=== PATIENT | male | born 1965 | race Caucasian/White ===

== ENCOUNTER 2019-08-02 16:28 | Inpatient (IN) ==
--- NOTE | 2019-08-02 16:56 | Diag Imaging Result Doc PS360 ---
EXAM: CHEST-2 VIEWS INDICATION: SOB TECHNIQUE: 2 views COMPARISON: 09/21/2017 FINDINGS: There is minimal subsegmental atelectasis at the right lung base. The lungs are grossly clear. There is no discrete pleural fluid collection or pneumothorax. The cardiomediastinal silhouette and central vasculature are grossly unremarkable. IMPRESSION: Minimal right basilar atelectasis. No definite acute chest pathology by plain radiograph, otherwise. Electronically signed by Meek Marx 08/02/2019 4:53 PM
--- NOTE | 2019-08-02 17:10 | PROVIDER DOCUMENTATION ---
HPI-Respiratory General - General Chief Complaint: Shortness of Breath Stated Complaint: Mata QUACH REFERRED Time Seen by Provider: 08/02/19 16:58 Source: patient Allergies/Adverse Reactions: Patient Allergies Allergy/AdvReac Type Severity Reaction Status Date / Time tramadol HCl * [From Ultram] AdvReac ITCHING Verified 08/02/19 19:05 Home Medications: Home Medication List Medication Instructions Recorded Confirmed Last Taken Type Aspirin [Ecotrin] 81 mg PO DAILY 08/28/14 08/02/19 09/10/15 History Amlodipine Besylate [Norvasc] 10 mg PO DAILY 09/11/15 08/02/19 09/10/15 History Citalopram Hydrobromide [Celexa] 40 mg PO DAILY 09/11/15 08/02/19 09/10/15 History Furosemide [Lasix] 40 mg PO DAILY PRN 09/11/15 08/02/19 09/10/15 History Metoprolol [Lopressor] 25 mg PO DAILY 09/11/15 08/02/19 09/10/15 History Potassium Chloride 20 meq PO BID 09/11/15 08/02/19 09/11/15 History Ibuprofen 800 mg PO TID 09/21/17 08/02/19 Unknown History Clopidogrel Bisulfate [Clopidogrel] 1 tab PO DAILY 03/14/19 08/02/19 Unknown History Gabapentin 1 tab PO TID 03/14/19 08/02/19 Unknown History Insulin Glargine [Lantus Insulin] 20 units SQ QHS 03/14/19 08/02/19 Unknown History Lovastatin 1 tab PO DAILY 03/14/19 08/02/19 Unknown History Metformin HCl [Glucophage] 1,000 mg PO BID 03/14/19 03/14/19 Unknown History Omeprazole 1 cap PO DAILY 03/14/19 08/02/19 Unknown History Sitagliptin Phos/Metformin HCl 1 tab PO BID 03/14/19 03/14/19 Unknown History [Janumet 50-1,000 mg Tablet] Tamsulosin HCl [Flomax] 0.4 mg PO DAILY #7 cap 03/14/19 Unknown Rx Zinc 50 mg PO DAILY 03/14/19 03/14/19 Unknown History Amoxicillin/Pot Clavulanate 875 mg PO BID 08/02/19 08/02/19 Unknown History [Augmentin] Bupropion HCl [Bupropion Xl] 150 mg PO DAILY 08/02/19 08/02/19 Unknown History Losartan Potassium 25 mg PO DAILY 08/02/19 08/02/19 Unknown History Meclizine HCl 25 mg PO DAILY 08/02/19 08/02/19 Unknown History Oxycodone/APAP 10 mg/325 mg 5 - 325 mg PO TID 08/02/19 08/02/19 Unknown History [Percocet-10] Sitagliptin Phos/Metformin HCl 50 - 1,000 mg PO BID 08/02/19 08/02/19 Unknown History [Janumet 50-1,000 mg Tablet] Trazodone HCl 100 mg PO HS 08/02/19 08/02/19 Unknown History - History of Present Illness-Resp Nature of Presenting Problem: 54 year old male pmh DMII, COPD, and nicotine dependence presenting to the emergency department c/o 1.5 week h/o increasing SOB, FIGUEROA, PND, and orthopnea. He is also endorsing increasing lower extremity edema in both legs bilaterally. Denies having ever been diagnosed with CHF. Symptoms are exacerbated with exertion and alleviated with rest. Ther patient states he cannot lay flat on his back or he starts coughing. All other ROS questioning is negative. Review of Systems - Adult - REVIEW OF SYSTEMS - ADULT Constitutional: reports: fatique, night sweats. denies: chills, fever Eyes: reports: no symptoms reported Ears, Nose, Mouth & Throat: reports: no symptoms reported Cardiovascular: reports: chest pain, edema (bilateral lower extremities), orthopnea, poor circulation, PND Respiratory: reports: cough, dyspnea on exertion, shortness of breath, wheezing Gastrointestinal: denies: abdominal pain, constipation, diarrhea, nausea, vomiting Genitourinary: denies: dysuria, frequency, flank pain, frequent UTI's, hematuria Musculoskeletal: denies: back pain, joint pain, joint swelling, muscle aches, muscle weakness Integumentary: reports: no symptoms reported Neurological: denies: dizziness/vertigo, headache/migraines, loss of balance, numbness, paresthesia, slurred speech, syncope Psychiatric: reports: no symptoms reported Endocrine: denies: change in skin pigment, excessive sweating, cold intolerance, heat intolerance, increased thirst, polyuria Hematologic/Lymphatic: reports: no symptoms reported Allergic/Immunologic: reports: no symptoms reported All Other Systems: Reviewed and Negative Past History - Adult - PAST MEDICAL HISTORY-ADULT Review of Records: reports: Old Records Reviewed, Nursing Assessment Review, Medications Reviewed, Social history reviewed & non-contributory. Major Childhood Illnesses: reports: denies history Cardiovascular: reports: HTN, hyperlipidemia Respiratory: reports: denies history Gastrointestinal: reports: denies history Obstetrical/Gynecological: reports: denies history Genitourinary: reports: denies history Musculoskeletal: reports: denies history Neurological: reports: CVA Endocrine/Immune: reports: Diabetes Other Conditions: reports: denies history - PRIOR SURGERIES/PROCEDURES Surgical/Procedure History: reports: orthopedic (extremity) - IMMUNIZATION STATUS Childhood Immunizations: See Nurse Assessment Flu Vaccine: See Nurse Assessment - FAMILY HISTORY Family History: reviewed, not pertinent - SOCIAL HISTORY Smoking: greater than 1 pack/day Substance Use: none/never Alcohol Use Frequency: occasionally Physical Exam-General - PHYSICAL EXAM-ADULT Initial Vital Signs Reviewed: Yes (low oxygen saturation) - CONSTITUTIONAL General Appearance: alert, no apparent distress, obese (morbid) - EYES Eyes: PERRL/EOMI - HEAD, EARS, NOSE, MOUTH & THROAT HENMT: normocephalic/atraumatic, TMs normal. negative: moist mucous membranes (dry MM) - NECK Neck: non-tender, full range of motion, supple, normal inspection - RESPIRATORY Respiratory: chest non-tender, wheezing (diffuse, expiratory, decreased breath sounds in the lower lobes b/l), dull on percussion, prolonged expiration - CARDIOVASCULAR Cardiovascular: regular rate, rhythm, no gallop, no JVD, no murmur. negative: normal peripheral pulses (distant heart sounds likely secondary to body habitus but no MRG.), no edema (2+ pretibial edema b/l) - GASTROINTESTINAL (ABDOMEN) Abdominal Exam: non tender, soft - MUSCULOSKELETAL Back Exam: normal inspection Extremity: normal range of motion, normal gait, pedal edema (2+ pretibial edema b/l) Peripheral Pulses: radial (R): 2+, radial (L): 2+ - SKIN Integumentary: normal color, warm/dry - NEUROLOGIC Neurologic: grossly normal, no motor/sensory deficits. negative: focal weakness, motor weakness, sensory deficit - PSYCHIATRIC Psych/Mental Status: normal mood/affect, normal thought content, normal thought process, oriented x 3 - HEART Score HEART Score: History: Slightly Suspicious (low risk) HEART Score: ECG: Normal HEART Score: Age: 45-65 Years HEART Score: Risk Factors for Atherosclerotic Disease: > or = 3 Risk Factors or History of Atherosclerotic Disease HEART Score: Troponin: < or = Normal Limit Total HEART Score:: 3 Progress - PLAN OF CARE/RESULTS Progress/Plan/Lab Results: Vital Signs - 8 hr 08/02/19 16:38 08/02/19 18:25 Temperature 97.8 F Pulse Rate 89 Respiratory Rate 18 16 Blood Pressure 145/86 O2 Sat by Pulse Oximetry 93 L Laboratory Results - last 24 hr 08/02/19 08/02/19 08/02/19 16:44 16:44 16:44 WBC 10.82 H RBC 5.17 Hgb 14.6 Hct 43.6 MCV 84.3 MCH 28.2 MCHC 33.5 RDW Std Deviation 13.3 Plt Count 161 MPV 12.7 H Immature Gran % (Auto) 0.2 Neut % (Auto) 70.0 Lymph % (Auto) 22.2 [place] % (Auto) 5.8 Eos % (Auto) 1.3 Baso % (Auto) 0.5 Immature Gran # (Auto) 0.02 Neut # (Auto) 7.58 H Lymph # (Auto) 2.40 [place] # (Auto) 0.63 H Eos # (Auto) 0.14 Baso # (Auto) 0.05 PT INR PTT (Actin FS) Specimen Type Sample Site pH pCO2 pO2 HCO3 Base Excess Oxyhemoglobin ABG O2 Sat (Calculated) ABG O2 Saturation ABG Carboxyhemoglobin ABG Methemoglobin [place] Test A-a O2 Difference Total Hemoglobin Lactate Liter Flow Blood Gas Modality FiO2 % Sodium 134 L Potassium 3.4 L Chloride 89 L Carbon Dioxide 31 Anion Gap 14 BUN 17 Creatinine 1.0 Estimated GFR/1.73 m2 > 60 BUN/Creatinine Ratio 17 Glucose 329 H Calculated Osmolality 283 Calcium 9.2 Total Bilirubin 0.22 AST 77 H ALT 86 H Alkaline Phosphatase 146 H Creatine Kinase 108 Troponin T High Sens Ake-K-Eauaoriiwcb Pept 26 Total Protein 7.2 Albumin 4.2 Globulin 3.0 Albumin/Globulin Ratio 1.4 08/02/19 08/02/19 08/02/19 16:44 16:44 20:10 WBC RBC Hgb Hct MCV MCH MCHC RDW Std Deviation Plt Count MPV Immature Gran % (Auto) Neut % (Auto) Lymph % (Auto) [place] % (Auto) Eos % (Auto) Baso % (Auto) Immature Gran # (Auto) Neut # (Auto) Lymph # (Auto) [place] # (Auto) Eos # (Auto) Baso # (Auto) PT 12.5 INR 0.92 PTT (Actin FS) 25.4 Specimen Type ARTERIAL Sample Site R RADIAL pH 7.45 pCO2 50 H pO2 59 L HCO3 31.8 H Base Excess 9.1 H Oxyhemoglobin 90.6 L ABG O2 Sat (Calculated) 19.1 ABG O2 Saturation 94.5 L ABG Carboxyhemoglobin 3.40 H ABG Methemoglobin 0.7 [place] Test YES A-a O2 Difference 78.0 Total Hemoglobin 15.0 Lactate 2.30 H Liter Flow 2.0 Blood Gas Modality [place] FiO2 % 28.0 Sodium Potassium Chloride Carbon Dioxide Anion Gap BUN Creatinine Estimated GFR/1.73 m2 BUN/Creatinine Ratio Glucose Calculated Osmolality Calcium Total Bilirubin AST ALT Alkaline Phosphatase Creatine Kinase Troponin T High Sens 10 Hth-S-Jauifpvmwyx Pept Total Protein Albumin Globulin Albumin/Globulin Ratio Orders Category Date Time Status Cardiac Monitoring DIRECTED Care 08/02/19 16:41 Active Oxygen Therapy- ED Nursing DIRECTED Care 08/02/19 16:41 Active Saline Loc NOW Care 08/02/19 16:41 Active CHEST-2 VIEWS [RAD] Stat Exams 08/02/19 16:41 Completed ABG [RESP] Routine Lab 08/02/19 20:10 Completed CBC WITH ELECTRONIC DIFF [HEME] Stat Lab 08/02/19 16:44 Completed CK PROFILE [SP CHEM] Stat Lab 08/02/19 16:44 Completed COMPREHENSIVE METABOLIC PANEL [CHEM] Stat Lab 08/02/19 16:44 Completed PRO B-NATRIURETIC PEPTIDE Stat Lab 08/02/19 16:44 Completed PROTIME WITH INR [COAG] Stat Lab 08/02/19 16:44 Completed PTT [COAG] Stat Lab 08/02/19 16:44 Completed TROPONIN T HIGH SENSITIVITY Stat Lab 08/02/19 16:44 Completed Albuterol 2.5MG/Ipratrop 0.5MG [Duoneb (A & A)] Med 08/02/19 17:21 Discontinued 3 ml INH NOW ONE Furosemide [Lasix] Med 08/02/19 17:21 Discontinued 40 mg IV NOW ONE Aerosol Treatments Routine Oth 08/02/19 17:21 Completed Aerosol Treatments Stat Oth 08/02/19 17:21 Completed CP/SOB/Palp >45 yrs of Age Stat Oth 08/02/19 16:41 Ordered EKG [EKG] Stat Ther 08/02/19 16:41 Draft I re-evaluated the patient after recieving lasix and duoneb treatment. The patient states he is not feeling any better and wishing to be admitted to the hospital for inpatient treatment. The patient's wheezing has improved on exam, but the patient does not wish to be discharged home on outpatient treatment. 2205: Dr. Guerra now paged 3 times, patient is waiting in ED pending inpatient admission. Result Diagrams: 08/02/19 16:44 08/02/19 16:44 - EKG 1 Time of EKG reading by physician:: : EKG Read and Signed by:: Shahriar Hernandez EKG Interpretation (*Must complete 3 of following elements*): Normal Rate: 82 Rhythm: sinus [place]: normal QRS: normal DC Interval: normal ST Wave: normal Prior EKG Comparison: no prior EKG Comments: No STEMI, NSTEMI, or signs of ischemia. - XRAY 1 XRAY Study: Chest Impression: Normal (EXAM: CHEST-2 VIEWS INDICATION: SOB TECHNIQUE: 2 views COMPARISON: 09/21/2017 FINDINGS: There is minimal subsegmental atelectasis at the right lung base. The lungs are grossly clear. There is no discrete pleural fluid collection or pneumothorax. The cardiomediastinal silhouette and central vasculature are grossly unremarkable. IMPRESSION: Minimal right basilar atelectasis. No definite acute chest pathology by plain radiograph, otherwise. Electronically signed by Meek Marx 08/02/2019 4:53 PM 08/02/191652 Interpreting Physician: Meek Marx MD Dictated Date/Time: 08/02/191651 cc: Shahriar Hernandez MD; Amalia Quach) - CONSULTS/PCP/HOSPITALIST Notification #1 *Consult/PCP/Hospitalist*: Dr. Guerra Time Discussed: 22:31 (Accepted Obs) Reason/Comments: COPD exacerbation Consult Disposition: Will see in ED Departure - Departure Date of Disposition Decision: 08/02/19 Time of Disposition Decision: 22:04 (Admit observation) DIAGNOSIS: Hypoxemia, Bilateral lower extremity edema, Hyperglycemia, Transaminitis, Acute exacerbation of chronic obstructive pulmonary disease (COPD) Disposition: ADMITTED INPATIENT 09 Certified Medical Emergency: Emergent Condition: Fair Referrals and Follow-Ups: Amalia Quach CRNP [Primary Care Provider] - - Critical Care Note This patient required my direct & personal management of CC.: No Attestation - Physician/ HEMANT Attestation Patient care was provided by Advanced Practice Provider:: No The physician spent face to face time with patient:: Yes Advanced Practice Provider documentation review:: Supervising physician onsite and consulted in the evaluation and care of this patient. The physician did have a face to face encounter with the patient.
[2019-08-02 17:17] LABS: BASO# 0.05 X1000 (0.0-0.2); BASO% 0.5 % (0.0-0.8); EOS# 0.14 X1000 (0.0-0.7); EOS% 1.3 % (0.0-10.0); HEMATOCRIT 43.6 % (42.0-52.0); HEMOGLOBIN 14.6 g/dL (14.0-18.0); IMM GRAN# 0.02 X1000 (0.0-0.04); IMM GRAN% 0.2 % (0.0-0.5); LYMPH% 22.2 % (20.5-51.1); MCH 28.2 PG (27-31); MCHC 33.5 g/dL (33-37); MCV 84.3 FL (81-99); MONO# 0.63 X1000 (0.11-0.59); MONO% 5.8 % (1.7-9.3); MPV 12.7 FL (7.4-10.4); NEUT# 7.58 X1000 (1.4-6.5); PLT 161 X1000 (130-400); RBC 5.17 XMIL (4.7-6.1); RDW 13.3 % (11.5-14.5); WBC 10.82 X1000 (4.8-10.8)
[2019-08-02 17:20] LABS: INR 0.92; PROTIME 12.5 Seconds (11.0-16.0)
[2019-08-02 17:21] LABS: PTT 25.4 Seconds (22.3-41.8)
[2019-08-02] MEDS ORDERED: LASIX IV ONE (17:21)
[2019-08-02] MEDS ORDERED: DUONEB (A & A) INH ONE (17:21)
[2019-08-02 17:31] LABS: ESTIMATED GFR > 60
[2019-08-02 17:36] LABS: AGAP 14; ALB/GLOB RATIO 1.4; ALBUMIN 4.2 g/dL (3.5-5.0); ALKALINE PHOSPHATASE 146 U/L (32-122); BUN 17 mg/dL (8-22); CALCIUM 9.2 mg/dL (8.8-10.2); CHLORIDE 89 mmol/L (98-107); CK PROFILE 108 U/L (24-204); COSMO 283; GLUCOSE 329 mg/dL (70-104); GOT 77 U/L (10-34); GPT 86 U/L (10-44); POTASSIUM 3.4 mmol/L (3.5-5.1); SODIUM 134 mmol/L (136-145); TCO2 31 mmol/L (25-35); TOTAL BILIRUBIN 0.22 mg/dL (0.20-1.00); TOTAL PROTEIN 7.2 g/dL (6.3-8.3)
--- NOTE | 2019-08-02 18:36 | EKG Report ---
Test Performed on : 08/02/2019 5:12:56 PM Test Reason : SOB Blood Pressure : / mmHG Vent. Rate : 082 BPM Atrial Rate : 082 BPM P-R Int : 182 ms QRS Dur : 082 ms QT Int : 374 ms P-R-T Axes : 054 009 046 degrees QTc Int : 436 ms Normal sinus rhythm. Possible Anterior infarct , age undetermined Abnormal ECG When compared with ECG of 21-SEP-2017 18:24, No significant change was found Unconfirmed Result
[2019-08-02 20:17] LABS: ALLEN TEST YES; BE 9.1 mmoll (-3.0-3.0); BLOOD TYPE ARTERIAL; HCO3-(ACT) 31.8 mmoll (20.0-26.0); METHB 0.7 % (0.0-1.5); O2(CT) 19.1 mL/dL (15.0-23.0); O2HB 90.6 % (95.0-99.0); PCO2(98.6) 50 mmHg (35-45); PO2(98.6) 59 mmHg (60-100); SAMPLE BLOOD; SAO2 94.5 % (95.0-100.0); pH(98.6) 7.45 (7.35-7.45)
[2019-08-02 20:19] LABS: MODALITY CANNULA
[2019-08-02] MEDS ORDERED: LANTUS INSULIN SUBQ SCH (21:00)
[2019-08-02] MEDS ORDERED: KLOR-CON PO ONE (23:07)
[2019-08-02] MEDS ORDERED: SOLU-MEDROL IV ONE (23:07)
[2019-08-02] MEDS ORDERED: HUMALOG IV ONE (23:08)
[2019-08-02] MEDS ORDERED: TYLENOL PO PRN (23:11)
[2019-08-02] MEDS: PERCOCET-5 PO PRN (23:35)
[2019-08-03] MEDS ORDERED: ZOFRAN IV PRN
[2019-08-03 00:19] LABS: HEMOGLOBIN A1C 10.1 % (4.8-6.0)
[2019-08-03] MEDS: DUONEB (A & A) INH SCH ×4 (03:25→21:48)
[2019-08-03] MEDS: HUMALOG SUBQ SCH ×8 (04:00→23:07)
--- NOTE | 2019-08-03 04:57 | HISTORY AND PHYSICAL ---
CHIEF COMPLAINT: Shortness of breath. HPI: This is a 54-year-old male who was referred here by Leslie Quach, his primary care provider. He has got diabetes mellitus type 2, which appears to be poorly controlled, COPD and nicotine dependence. He has been having around 1-1/2 weeks of increasing shortness of breath. It appears that he is describing PND and orthopnea when sleeping. It also sounds like he may have obstructive sleep apnea as his tells him he has apneic spells when sleeping. He says that his symptoms are exacerbated with exertion, stating that if he were to walk out of the hospital to his vehicle he would be severely short of breath. They are alleviated with rest. States he has not been able to lay flat on his back for some time and has modified his bed up around 5-1/2 to 6 inches, but most days still sleeps in his recliner. He has a calculated heart score which is moderately high, around 4. He has had a history of CVA x2, hypertension, hyperlipidemia, and a PFO. He sees Dr. Sethi, [facility], in [place]. His laboratory data was fairly unremarkable other than being mildly hypoxic on room air. His pO2 was 59, his pCO2 was 50. His glucose was also elevated at 329. He will be admitted for further evaluation and treatment. PAST MEDICAL HISTORY: See HPI. PREVIOUS SURGICAL HISTORY: Ankle surgery. SOCIAL HISTORY: He was a [id number] plus smoker. He has cut down to half pack per day. Denies alcohol or illicit drugs. FAMILY HISTORY: Father had myocardial infarction and congestive heart failure, a sibling with congestive heart failure. Mother had congestive heart failure. ALLERGIES: Ultram causing itching. HOME MEDICATIONS: 1. Augmentin 875 mg p.o. b.i.d. 2. Lasix 40 mg p.o. daily. 3. Ibuprofen 800 mg p.o. t.i.d. 4. [place] 5 p.o. t.i.d. 5. Janumet p.o. b.i.d. 6. Norvasc 10 mg p.o. daily. 7. Aspirin 81 mg p.o. daily. 8. Bupropion 150 mg p.o. daily. 9. Celexa 40 mg p.o. daily. 10. Plavix 75 mg p.o. daily. 11. Neurontin 600 mg p.o. t.i.d. 12. Lantus 20 units subcutaneously at bedtime. 13. Losartan potassium 25 mg p.o. daily. 14. Lovastatin 40 mg p.o. daily. 15. Meclizine 25 mg p.o. daily. 16. Metoprolol 25 mg p.o. daily. 17. Omeprazole 20 mg p.o. daily. 18. Potassium chloride 20 mEq p.o. b.i.d. 19. Trazodone 100 mg p.o. at bedtime. REVIEW OF SYSTEMS: A 14-point review of systems is conducted with the patient. He also states that he has been having intermittent chest pain substernal which was sharp and intermittent. He also has daily vertigo or dizziness. This is secondary to his previous CVAs and is chronic. All other systems reviewed and found to be negative. Other pertinent positives are listed above in the HPI. PHYSICAL EXAMINATION: VITAL SIGNS: Temperature 97.8, pulse 89, respirations 18, blood pressure 145/86, oxygen saturation 93% on room air. GENERAL: Pleasant 54-year-old male lying on the ER stretcher. He is obese, alert and oriented x3, and in no acute distress. HEENT: Head is atraumatic, normocephalic. Pupils are equal, round, and reactive to light. Extraocular eye movements intact. Sclera anicteric. Conjunctiva pink. Oral mucosa is moist. NECK: Short and thick. Trachea is midline. No cervical lymphadenopathy. CARDIAC: S1, S2 appreciated. No murmurs, gallops, rubs. LUNGS: Expiratory wheezing, otherwise clear to auscultation. No rhonchi, no rales. Symmetric rise and fall of respirations. ABDOMEN: Protuberant, soft, nondistended, nontender. Bowel sounds present all 4 quadrants. Normoactive. No pulsatile masses. No organomegaly. EXTREMITIES: No clubbing or cyanosis. 1+ pitting edema bilateral lower extremities, 2+ pedal pulses. GENITOURINARY: No bladder distention. Patient voids, otherwise deferred. NEUROLOGICAL: Alert and oriented x3. No focal motor deficits. Otherwise nonfocal examination. DIAGNOSTIC DATA: Chest x-ray minimal right basilar atelectasis, otherwise grossly normal. LABORATORY DATA: WBC 10.82, hemoglobin 14.5, hematocrit 43.6. ABG pH 7.45, pCO2 50, pO2 59, bicarb 31.8, this is on room air. Sodium 134, potassium 3.4, chloride 89, carbon dioxide 31, BUN 17, creatinine 1, glucose 329. AST 77, ALT 86. ASSESSMENT AND PLAN: 1. Chronic obstructive pulmonary disease with exacerbation. 2. Questionable congestive heart failure. 3. Transaminitis. 4. History of cerebrovascular accidents, on Plavix. 5. Hypertension. 6. Hyperlipidemia. 7. Diabetes mellitus type 2, poorly controlled. PLAN: Admit patient to the medical floor. Echocardiogram tomorrow. Continue Plavix, antihypertensives, Lasix 40 mg IV q.24h. Sliding scale insulin with fingerstick blood sugars q.4h. Continue his long acting insulin. Check a hemoglobin A1c. Will consult Dr. Gonzalez with Cardiology per the patient's request. Further recommendations based on patient's clinical course. Dictated by LUIS MANUEL Tellez for Augusto Guerra MD cc: LUIS MANUEL Tellez MD Johnna Langford, CRNP Dr. Strickland Pt does have some features suggestive of CHF if which case depending EF further modification of his current med list can be done. Consider sleep study also in this patient. Smoking cessation discussed. Does not seem very enthusiastic. [facility]
[2019-08-03] MEDS: PRILOSEC PO SCH (07:40)
[2019-08-03 08:56] LABS: AGAP 21; BUN 17 mg/dL (8-22); CALCIUM 9.2 mg/dL (8.8-10.2); CHLORIDE 91 mmol/L (98-107); COSMO 295; CREATININE 0.9 mg/dL (0.7-1.2); ESTIMATED GFR > 60; GLUCOSE 358 mg/dL (70-104); SODIUM 140 mmol/L (136-145); TCO2 28 mmol/L (25-35)
[2019-08-03] MEDS ORDERED: LANTUS INSULIN SUBQ ONE (10:00)
[2019-08-03] MEDS: CELEXA PO SCH (10:31)
[2019-08-03] MEDS: ASPIRIN EC PO SCH (10:31)
[2019-08-03] MEDS: ANTIVERT PO SCH (10:31)
[2019-08-03] MEDS: LOPRESSOR PO SCH (10:32)
[2019-08-03] MEDS: MEVACOR PO SCH (10:32)
[2019-08-03] MEDS: NORVASC PO SCH (10:32)
[2019-08-03] MEDS: KLOR-CON PO SCH ×2 (10:32→23:04)
[2019-08-03] MEDS: COZAAR PO SCH (10:32)
[2019-08-03] MEDS: PLAVIX PO SCH (10:33)
[2019-08-03] MEDS: WELLBUTRIN XL PO SCH (10:33)
[2019-08-03] MEDS: LASIX IV SCH (10:37)
[2019-08-03] MEDS: NEURONTIN PO SCH ×3 (10:37→23:04)
[2019-08-03] MEDS: PERCOCET-5 PO PRN ×2 (17:03→23:05)
[2019-08-03] MEDS ORDERED: DESYREL PO SCH (21:00)
--- NOTE | 2019-08-03 21:39 | ECHO REPORT ---
ORDER DATE: 08/03/2019 INDICATION: Heart failure, diabetes. M-MODE MEASUREMENTS: Left ventricle end diastole: 5.3. Left ventricle end systole: 3.5. Posterior wall: 1.0. Interventricular septum: 1.0. Left atrium: 4.3. Aortic diameter: 3.4. SUMMARY OF 2-DIMENSIONAL IMAGIN. The study was difficult. Optison was added. 2. Left ventricular systolic function is well preserved. Ejection fraction estimated at 60%. There is no wall motion abnormality noted. 3. The right ventricle appears to be normal. 4. The atria appear to be normal. 5. The aortic valve appears to be grossly within normal range. Doppler interrogation of the valve is unremarkable. 6. The mitral valve opens normally. Color flow mapping unremarkable. 7. Pulse wave Doppler of mitral inflow shows mild reversal of the E/A ratio. The ratio is 0.85. 8. The pulmonic valve is suboptimally visualized. Color flow mapping indicates a mild degree or regurgitation. 9. The tricuspid valve shows a mild degree of regurgitation. Pulmonary pressure appears to be within normal range at 23 mmHg. 10.The mitral valve shows a very mild degree of regurgitation. 11.There may be a physiologic pericardial effusion. No mass and no thrombus. Clinical correlation recommended. cc: MD Shubham Vargas CRNP
[2019-08-03] MEDS: LOVENOX SUBQ SCH ×2 (23:11)
[2019-08-04] MEDS: HUMALOG SUBQ SCH ×4 (01:28→11:57)
[2019-08-04] MEDS: DUONEB (A & A) INH SCH ×2 (04:03→10:39)
[2019-08-04] MEDS: PERCOCET-5 PO PRN (05:39)
[2019-08-04] MEDS: PRILOSEC PO SCH (06:06)
[2019-08-04 06:47] LABS: BASO# 0.03 X1000 (0.0-0.2); BASO% 0.3 % (0.0-0.8); EOS# 0.13 X1000 (0.0-0.7); EOS% 1.3 % (0.0-10.0); HEMOGLOBIN 13.3 g/dL (14.0-18.0); LYMPH% 30.6 % (20.5-51.1); MCH 28.4 PG (27-31); MCHC 33.3 g/dL (33-37); MCV 85.5 FL (81-99); MONO# 0.75 X1000 (0.11-0.59); MONO% 7.7 % (1.7-9.3); MPV 12.2 FL (7.4-10.4); NEUT# 5.88 X1000 (1.4-6.5); NEUT% 60.1 % (42.2-75.2); PLT 162 X1000 (130-400); RBC 4.68 XMIL (4.7-6.1); RDW 13.5 % (11.5-14.5); WBC 9.79 X1000 (4.8-10.8)
[2019-08-04 07:44] LABS: AGAP 12; ALB/GLOB RATIO 1.2; ALBUMIN 3.9 g/dL (3.5-5.0); ALKALINE PHOSPHATASE 107 U/L (32-122); BUN 19 mg/dL (8-22); CALCIUM 9.2 mg/dL (8.8-10.2); CHLORIDE 93 mmol/L (98-107); COSMO 285; CREATININE 0.8 mg/dL (0.7-1.2); ESTIMATED GFR > 60; GLUCOSE 234 mg/dL (70-104); GOT 56 U/L (10-34); GPT 68 U/L (10-44); MAGNESIUM 2.1 mg/dL (1.5-2.7); PHOSPHORUS 3.2 mg/dL (2.7-4.5); POTASSIUM 3.5 mmol/L (3.5-5.1); SODIUM 138 mmol/L (136-145); TCO2 33 mmol/L (25-35); TOTAL BILIRUBIN 0.39 mg/dL (0.20-1.00); TOTAL PROTEIN 7.2 g/dL (6.3-8.3)
[2019-08-04] MEDS: MEVACOR PO SCH (08:15)
[2019-08-04] MEDS: ASPIRIN EC PO SCH (08:16)
[2019-08-04] MEDS: PLAVIX PO SCH (08:16)
[2019-08-04] MEDS: CELEXA PO SCH (08:17)
[2019-08-04] MEDS: COZAAR PO SCH (08:18)
[2019-08-04] MEDS: ANTIVERT PO SCH (08:18)
[2019-08-04] MEDS: NEURONTIN PO SCH (08:18)
[2019-08-04] MEDS: KLOR-CON PO SCH (08:19)
[2019-08-04] MEDS: WELLBUTRIN XL PO SCH (08:19)
[2019-08-04] MEDS: NORVASC PO SCH (08:20)
[2019-08-04] MEDS: LOPRESSOR PO SCH (08:20)
[2019-08-04] MEDS: LASIX IV SCH (08:21)
[2019-08-04] MEDS ORDERED: LANTUS INSULIN SUBQ SCH ×2 (09:00)
[2019-08-04 12:09] VITALS: BP 124/73
--- NOTE | 2019-08-05 08:30 | DISCHARGE SUMMARY ---
ADMISSION DATE: 08/03/2019 DISCHARGE DATE: 08/04/2019 DISCHARGE DIAGNOSES: 1. Likely chronic obstructive pulmonary disease exacerbation in a patient with a strong history of tobacco abuse, but he has never been diagnosed with chronic obstructive pulmonary disease. 2. Fluid overload. 3. Transaminitis. 4. History of cerebrovascular accident, on Plavix. 5. Hypertension. 6. Dyslipidemia. 7. Poorly-controlled type 2 diabetes with a hemoglobin A1c of 10.1. PROCEDURES PERFORMED: Chest x-ray dated 08/02/2019, impression: Minimal right basilar atelectasis, no definite acute chest pathology by plain radiograph otherwise. Echocardiogram dated 08/03/2019: Pulmonary pressure appears to be within normal range at 23 mmHg, ejection fraction 60%, with no wall motion abnormality. Right ventricle appears to be normal. HOSPITAL COURSE: A 54-year-old, male, who was referred here by Aubree Quach, his primary care provider. He was admitted yesterday, 08/03/2019. He has a history of diabetes (poorly controlled), likely COPD, and nicotine dependence. As per the patient, he has been smoking at least for 40 years, at least 1 to 2 packs a day. He has been having around 1-1/2 weeks of increasing shortness of breath and probably some orthopnea when sleeping. For me, it looks like he has obstructive sleep apnea, and his told the admitting provider that he has apneic spells when sleeping. His symptoms are exacerbated with exertion. He is really short of breath with activity, and alleviated with rest. He has a history of CVA x2, hypertension, hyperlipidemia, and apparently PFO. Apparently, he sees Dr. 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 His blood sugar was elevated at 329. Apparently, he uses Lantus 30 at home. The patient was sent to the medical floor. I put him on breathing treatment. He is not on any treatment at home apparently for COPD, but I have started that. I continued with his home medications, including his Lasix as well. Chest x-ray was basically unremarkable, as well as the echocardiogram. He is breathing much better today, minimally wheezing. I do believe he can safely go home, and I had a conversation with him and the at the bedside about diabetes, about hypertension, obesity, physical activity, and tobacco abuse, and they seem to understand that he needs to stop smoking completely. We have arranged a followup for him with Dr. Thomas, which is a sales [employer], on 08/16/2019 at 9:[address] Thomsa to evaluate, not only his COPD, but likely this patient also has obstructive sleep apnea, and follow up with primary care doctor in 1 week as well. He will be discharged with steroids and breathing treatment as well. PHYSICAL EXAMINATION: Vital Signs: Temperature 97.6 degrees, pulse 59, respiratory rate 20, blood pressure 124/73, oxygen saturation 97% on room air. HEENT: Head normocephalic. No trauma. PERRLA. Neck: Supple. No JVD. No masses. Central trachea. Chest: Decreased breath sounds globally with prolonged expiratory phase, and faint end expiratory wheezing. Abdomen: Soft, nontender, nondistended. No hepatosplenomegaly. Protuberant. Extremities: Trace edema. No clubbing, no cyanosis. Neurological: The patient is awake, alert. He is oriented x3. I do not see any focal deficits. LABORATORY DATA: WBC 9.7, hemoglobin 13.3, hematocrit 40.0, platelets 162,000. Sodium 138, potassium 3.5, chloride 93, bicarbonate 33, BUN 19, creatinine 0.8, glucose 234, calcium 9.2. AST 56, ALT 68, alkaline phosphatase 107. DISCHARGE MEDICATIONS: Albuterol sulfate 2 puffs inhaled every 4 hours as needed, amlodipine 10 mg p.o. daily, aspirin 81 mg p.o. daily, bupropion 150 mg p.o. daily, citalopram 40 mg p.o. daily, Plavix 75 mg p.o. daily, Lasix 40 mg p.o. daily as needed, gabapentin 1 tablet p.o. t.i.d. 600 mg, Lantus (I increased the dose of Lantus from 30 to 40 units subcutaneously at bedtime), Atrovent 2 puffs inhaled 4 times a day, losartan 25 mg p.o. daily, lovastatin 40 mg p.o. daily, meclizine 25 mg p.o. daily, Medrol Dosepak as directed, metoprolol 25 mg p.o. daily, omeprazole 20 mg p.o. daily, Percocet 5 mg p.o. b.i.d., potassium chloride 20 mEq p.o. b.i.d., Janumet mg tablet p.o. b.i.d., trazodone 100 mg p.o. at bedtime. DISCHARGE INSTRUCTIONS: I instructed the patient to check his blood sugar before eating and before bed, and take a note of that and show these to his primary care doctor. Also, I recommended a diabetic diet, exercise, and stop smoking completely. They seem to understand. The was at the bedside. cc: Robert Moore MD
== END 2019-08-04 12:43 | disposition home or self-care (01) | DRG 191 ==
LOC: ED 16:28 → EDIPHOLD 08-03 00:07 → SUATTDRO 08-03 00:07 → 4N 08-03 00:54 → EDIPHOLD 08-03 00:57 → 4N 08-03 13:52
PROVIDERS: ATTEND Internal Medicine